=== PATIENT | female | born 1930 | race Caucasian/White ===

== ENCOUNTER 2017-06-05 20:10 | Inpatient (IN) | payer MEDICARE ==
[~2017-06-05] VITALS: Ht 160 cm; Wt 71.6 kg
[~2017-06-05 20:10] MED LIST: ALPR.25T PO; CLONAZEPAM0.5 M1 PO; PAX20 PO
[2017-06-05 20:17] VITALS: BP 141/99; PULSE 79; RESP 20; O2SAT 99
--- NOTE | 2017-06-05 21:29 | ED.REPORT ---
HPI-Abd Pain F 40 and Over Date of Service Jun 05, 2017 ED Provider: Tal Campa MD Pt is a 86 year old female with a history of A-fib, kidney stones, and HTN who presents to the ED complaining of lower abdominal pain onset yesterday. She c/o associated back pain, nausea, eructation, and dysuria onset 1 week ago. She denies fevers and chills. The pt reports hysterectomy, but when inquired about appendectomy, she states she does not know and "I think they probably took it out." Pt denies having similar symptoms previously. Nursing Notes Stated Complaint: POSS BLADDER INFECTION Chief Complaint: Female Abdominal Pain Nursing Notes Reviewed: Yes Allergies: Coded Allergies: Penicillins (Verified Allergy, Severe, 09/14/12) Sulfa (Sulfonamide Antibiotics) (Verified Allergy, Intermediate, 06/05/17) warfarin sodium (Verified Allergy, Unknown, 06/01/14) Scheduled Alprazolam-Expunged Drug, Do Not Renew! (Alprazolam-Expunged Drug, Do Not Renew! ) 0.25 Mg Tablet 0.25 MG PO TIDP PARoxetine-Expunged Drug, Do Not Renew! (Paxil-Expunged Drug, Do Not Renew!) 20 Mg Tablet 20 MG PO DAILY clonazePAM-Expunged Drug, Do Not Renew! (clonazePAM-Expunged Drug, Do Not Renew! ) 0.5 Mg Tablet 0.5 MG PO BID General Time Seen by MD: 21:28 Chief Complaint Abdominal pain Hx Obtained From: Patient Arrived By: Walk-in Sudden in Onset?: No Onset Occurred: Yesterday Symptom Duration: Since onset Location: : Abdomen lower Quality: Painful Radiation: : Back Severity: Current: Moderate Severity: Maximum: Moderate Recent Healthcare: No recent doctor visit, No recent hospitalization Similar Sx Previous: No Past Medical History Past Medical History Notes: PCP - Ivon Mello Past Medical History shingles x2 longstanding history of atrial fibrillation, not currently anticoagulated due to complications Kidney stone Past Surgical History Mitral valve repair Reports: Hysterectomy Smoking History Unknown if Ever Smoker Social History Lives at [place] Alcohol Use: Denies alcohol use Drug Use: Denies drug use Other Social History: Good social support, Lives in care home Ambulatory Status Independent Review of Systems + Eructation Constitutional: Denies: Chills, Fever GI: Reports: Abdominal pain, Nausea Female: Reports: Dysuria Musculoskeletal: Reports: Back pain Complete sys rev & neg: except as marked. Physical Exam Vital Signs Vital Signs (First) Date Time Temp Pulse Resp B/P Pulse Ox O2 Delivery O2 Flow Rate FiO2 06/05/17 20:17 36.8 79 20 141/99 99 Room Air Initial VS: Reviewed Head / Eyes: Atraumatic, Normocephalic Extremities: Vascular intact, Neuro intact Skin: Warm, Dry, No cyanosis Neurologic: Alert, Oriented Psychiatric: Mood/affect normal, Behavior normal General/Constitutional: Awake, Alert Appears painful and distressed. Respiratory / Chest: Atraumatic, Breath sounds NL, Breath sounds = bilat Cardiovascular: Heart rate NL, Regular rhythm, Heart sounds NL, No gallop, No murmurs Abdomen: Soft Tenderness/Guarding/Rebound: Positive: Tender LLQ... (Moderate) Guarding and active bowel sounds. Back: Atraumatic, Full range of motion Left CVAT Interpretation & Diagnostics Lab Results Interpretation Result Diagram: 06/05/17 2229 06/05/17 2229 Test 06/05/17 22:08 06/05/17 22:29 Urine Color Yellow (YELLOW) Urine Appearance Cloudy (CLEAR,HAZY) Urine pH 7.5 (5.0-8.0) Urine Specific [place] 1.010 (1.003-1.035) Urine Protein 30mg/dL (NEG,TRACE) Urine Glucose (UA) Negativemg/dL (NEGATIVE) Urine Ketones Negativemg/dL (NEGATIVE) Urine Occult Blood Large (NEGATIVE) Urine Nitrite Positive (NEGATIVE) Urine Bilirubin Negative (NEGATIVE) Urine Urobilinogen Normalmg/dL (NORMAL) Urine Leukocyte Esterase Large (NEGATIVE) Urine RBC 11-50/hpf (0-2) Urine WBC Packed/hpf (0-5) Urine Epithelial Cells Occasional/hpf (NONE-MOD) Urine Crystals None seen (NONE SEEN) Urine Bacteria Moderate/hpf (NONE-FEW) Urine Hyaline Casts None/lpf (NONE) Urine Granular Casts None seen (NONE SEEN) Urine Waxy Casts None seen (NONE SEEN) Urine Red Blood Cell Casts None seen (NONE SEEN) Urine White Blood Cell Casts None seen (NONE SEEN) Urine Mucus None seen (None Seen) Urine Trichomonas None seen (NONE SEEN) Urine Yeast None (NONE SEEN) Urinalysis Comment None Urine Culture Reflexed Indicated White Blood Count 11.7th/mm3 (3.8-10.1) Red Blood Count 4.45mil/mm3 (3.90-5.20) Hemoglobin 13.1g/dL (12.0-15.6) Hematocrit 38.6% (35.0-46.0) Mean Corpuscular Volume 86.7fL (81-100) Mean Corpuscular Hemoglobin 29.4pg (27.0-35.0) Mean Corpuscular Hemoglobin Concent 33.9% (32.0-37.0) Red Cell Distribution Width 13.1% (12.3-15.4) Platelet Count 218bil/L (150-400) Neutrophils (%) (Auto) 82.1% (40-74) Lymphocytes (%) (Auto) 8.6% (14-46) Monocytes (%) (Auto) 8.6% (4-12) Eosinophils (%) (Auto) 0.3% (0-5) Basophils (%) (Auto) 0.2% (0-3) Sodium Level 134mEq/L (134-144) Potassium Level 4.2mEq/L (3.5-5.2) Chloride Level 99mEq/L (97-108) Carbon Dioxide Level 17mmol/L (18-29) Blood Urea Nitrogen 14mg/dL (8-27) Creatinine 0.84mg/dL (0.57-1.00) Estimat Glomerular Filtration Rate 93mL/min (>59) Glucose Level 124mg/dL (60-99) Lactic Acid Level 1.8mmol/L (0.4-2.0) Calcium Level 9.4mg/dL (8.5-10.1) Magnesium Level 2.0mg/dL (1.6-2.6) Total Bilirubin 0.4mg/dL (0.0-1.2) Aspartate Amino Transf (AST/SGOT) 23U/L (0-50) Alanine Aminotransferase (ALT/SGPT) 11U/L (0-32) Alkaline Phosphatase 89U/L (25-165) Total Protein 7.8g/dL (6.4-8.4) Albumin 4.3g/dL (3.4-5.0) Lipase 49U/L (13-60) Hold Jean Top Tube Received (Received) CT Abd / Pelvis Interpretation CONCLUSION: Thickened urinary bladder, query acute cystitis. Right renal calculus. 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 No obstructing lesion seen. Small right pleural effusion Transmitted to the ED at 00:48 by Cece Toledo. Study type: Abdominal CT no contrast Re-Eval/Medical Decision Med Decision/Clinical Course Elderly female with complicated UTI based on presence of hydronephrosis and renal stones. She appears nontoxic at present she has been cultured and we have started IV meropenem. Will be admitted to the hospitalist service, hospitalist service plans to consult urology in the morning. Source of Hx: Old records Re-Evaluation/Progress : Time of Eval: 00:58 Patient Status: Condition improved Re-Evaluation/Progress Note: Pt rechecked. Informed pt of results and plan for admission. Pt understands and agrees with plan for admission. Discussed pt's plans for life-support; she reports that she does not want to be left on exterminator helper life-support, but would want an attempt at resuscitation. All questions addressed. Consultation : Referral / Consult Name: Santo Quiles MD Consulted With: Hospitalist Call Returned at: 01:09 Cork Wirer: Will see patient, Agrees with eval, Agrees with plan, Accepts admit Counseled Regarding: Diagnosis, Lab results, Need for admission Discharge & Departure Primary Impression: Hydronephrosis Hydronephrosis type: unspecified Qualified Code: N13.30 - Unspecified hydronephrosis Disposition: ADMITTED TO HOSPITAL Discharge Condition All VS Reviewed: Yes Condition: Stable Referrals: Ivon Mello MD (PCP) Lv Attestation Portions of this note were transcribed by Lisa Samuels. IDr. Campa personally performed the history, physical exam and medical decision-making; I reviewed and confirmed the accuracy of the information in the transcribed note. Signed by : Lv Beaver, 06/05/17. copies to: Ivon Mello MD, Donald L MD Jun 05, 2017 21:29 Lisa Walls Jun 05, 2017 21:48
[2017-06-05 21:33] VITALS: BP 151/85; PULSE 99; RESP 17; O2SAT 100
[2017-06-05] MEDS ORDERED: 0.9% Sodium Chloride 1,000 ML IV ONE (21:58)
[2017-06-05 22:20] LABS: APPEARANCE,URINE CLOUDY (CLEAR,HAZY); COLOR,URINE YELLOW (YELLOW); OCCULT BLOOD,URINE LARGE (NEGATIVE); PH,URINE 7.5 (5.0-8.0)
[2017-06-05 22:21] LABS: UROBILINOGEN,URINE NORMAL (NORMAL)
[2017-06-05 22:32] LABS: BASOPHILS % (AUTO) 0.2 % (0-3); EOSINOPHILS % (AUTO) 0.3 % (0-5); MONOCYTES % (AUTO) 8.6 % (4-12); Mean Corpuscular Hemoglobin 29.4 pg (27.0-35.0); Mean Corpuscular Volume 86.7 fL (81-100); NEUTROPHILS % (AUTO) 82.1 % (40-74); Platelet Count 218 bil/L (150-400)
[2017-06-05] MEDS: HYDROmorphone 0.5 mg/0.5 mL iSecure Syringe IVPUSH PRN (22:34)
[2017-06-05] MEDS: Ondansetron 2 mg/mL 2 mL Inj IVPUSH PRN (22:34)
[2017-06-05 22:41] VITALS: BP 154/84; PULSE 110; RESP 20; O2SAT 99
[2017-06-06] VITALS (10 sets, daily range): BP systolic 130–156; BP diastolic 59–90; PULSE 75–102; RESP 18–25; O2SAT 93–100
[2017-06-06] MEDS: Ondansetron 2 mg/mL 2 mL Inj IVPUSH PRN ×3 (00:15→02:30)
[2017-06-06] MEDS: HYDROmorphone 0.5 mg/0.5 mL iSecure Syringe IVPUSH PRN (00:48)
[2017-06-06] MEDS ORDERED: Meropenem Inj 1,000 MG in 0.9% Sodium Chloride 100 ML IV ONE ×2 (01:00→01:01)
[2017-06-06] MEDS ORDERED: Meropenem Inj 1,000 MG in 0.9% Sodium Chloride 50 ML IV ONE (01:00)
[2017-06-06] MEDS ORDERED: Polyethylene Glycol (PEG) 17 Gm Powder PO PRN (01:15)
[2017-06-06] MEDS ORDERED: Ondansetron 2 mg/mL 2 mL Inj IVPUSH PRN (01:15)
[2017-06-06] MEDS ORDERED: Alum-Mag Hydrox-Simeth 30 mL Suspension PO PRN (01:15)
--- NOTE | 2017-06-06 02:10 | PCM.HPMED ---
Subjective Date of Service Jun 06, 2017 Primary Provider: Admitting Physician: Primary Care Physician: Ivon Mello MD Attending Physician: Admit Status: From the Emergency Department, Full Admit, Remote Telemetry Chief Complaint: Flank and abdominal pain History of Present Illness: Madelyn Hill is a 86 year old female with Paroxysmal Atrial fibrillation, Hypertension and Mitral valve surgery who presents to [facility] emergency department complaining of lower abdominal pain onset yesterday. Patient stated she felt hot with possible fever a week ago. She then progressively developed bilateral flank pain that seems to radiate to her lower abdomen. Associated symptom includes nausea without vomiting as well as some dysuria. Denies any hematuria. In the last 24 hours the pain has worsened and with poor appetite. Patient has history of Kidney stone that she passed without any intervention. Case discussed with Dr Campa. IV fluids and antibiotics initiated. Dr Campa will contact Urology for consult Review of Systems: Pertinent positives as noted in HPI. All other systems were reviewed and are negative Allergies Coded Allergies: Penicillins (Verified Allergy, Severe, 09/14/12) Sulfa (Sulfonamide Antibiotics) (Verified Allergy, Intermediate, 06/05/17) warfarin sodium (Verified Allergy, Unknown, 06/01/14) Home Medications From Next [facility], not yet confirmed Madelyn Hill [id number] 1930 06/11/2016 11:00 AM 1/6 amlodipine 5 mg tablet take 1 tablet and half daily in the AM atenolol 25 mg tablet take 1 tablet by oral route every day in the evening Citracal Regular 250 mg calcium-200 unit tablet Take 1 (600 MG) tablet by oral route every other day lovastatin 20 mg tablet take 1 tablet by oral route every day with the evening meal paroxetine 20 mg tablet take 1/2 tablet by oral route every day PMH Hypertension Hyperlipidemia Paroxysmal Atrial fibrillation with chronic anticoagulation GERD Kidney stones Syncope . Surgical History Mitral valve repair Abdominal hysterectomy with unilateral salpingo oophorectomy Cardiac cath Cardioversion Mohs Surgery Family History Father age 94 Mother in her 60s History of Hypertension and Kidney disease Social History Hx Alcohol Use: No Hx Substance Use: No Hx Tobacco Use: No Smoking Status: Never Smoker Living Arrangement: with Family Exam Vital Signs Vital Sign - Last Date Time Temp Pulse Resp B/P Pulse Ox O2 Delivery O2 Flow Rate FiO2 7/30/17 00:45 90 19 142/59 97 Room Air 06/05/17 20:17 36.8 Intake and Output 06/05/17 06/05/17 06/06/17 Cumulative From/Thru 15:00 23:00 07:00 06/05/17 20:17 - 06/06/17 00:45 Intake Total 999 ml 999 ml Balance 999 ml 999 ml Intake IV Total 999 ml 999 ml # Voids 1 1 Exam General: Alert, Oriented X3, Cooperative, mild Distress due to nausea Eyes: PERRLA, Scleral Anicteric Mouth: Mouth Normal, Mucous Membranes dry Neck: Supple, no Thyromegaly, trachea central. Chest & Lungs: Clear to auscultation & percussion, No adventitious breath sounds, no crackles, no wheeze Cardiovascular: Normal S1, Normal S2, No Murmurs/Rubs/Gallops, Regular Rate/ Rhythm, (No JVD, no peripheral edema) Pulses: Radial (present and equal), Dorsalis Pedi (present and equal) Abdomen: Soft, Non-tender, Non-distended, Normoactive bowel tones. Musculoskeletal: Unremarkable. Normal range of motion, no swollen or erythematous joints + CVA tenderness bilateral Extremities: No edema, no cyanosis, no clubbing. Skin: No rashes. Warm and dry, no erythematous areas Neurological: Grossly neurologically intact, Normal Speech, Sensation Intact Lymphatic: Lymph nodes Cervical and Axillary not palpable. Lab and Diagnostics Labs Laboratory Tests Test 06/05/17 22:08 06/05/17 22:29 Urine Color Yellow (YELLOW) Urine Appearance Cloudy (CLEAR,HAZY) Urine pH 7.5 (5.0-8.0) Urine Specific [place] 1.010 (1.003-1.035) Urine Protein 30mg/dL (NEG,TRACE) Urine Glucose (UA) Negativemg/dL (NEGATIVE) Urine Ketones Negativemg/dL (NEGATIVE) Urine Occult Blood Large (NEGATIVE) Urine Nitrite Positive (NEGATIVE) Urine Bilirubin Negative (NEGATIVE) Urine Urobilinogen Normalmg/dL (NORMAL) Urine Leukocyte Esterase Large (NEGATIVE) Urine RBC 11-50/hpf (0-2) Urine WBC Packed/hpf (0-5) Urine Epithelial Cells Occasional/hpf (NONE-MOD) Urine Crystals None seen (NONE SEEN) Urine Bacteria Moderate/hpf (NONE-FEW) Urine Hyaline Casts None/lpf (NONE) Urine Granular Casts None seen (NONE SEEN) Urine Waxy Casts None seen (NONE SEEN) Urine Red Blood Cell Casts None seen (NONE SEEN) Urine White Blood Cell Casts None seen (NONE SEEN) Urine Mucus None seen (None Seen) Urine Trichomonas None seen (NONE SEEN) Urine Yeast None (NONE SEEN) Urinalysis Comment None Urine Culture Reflexed Indicated White Blood Count 11.7th/mm3 (3.8-10.1) Red Blood Count 4.45mil/mm3 (3.90-5.20) Hemoglobin 13.1g/dL (12.0-15.6) Hematocrit 38.6% (35.0-46.0) Mean Corpuscular Volume 86.7fL (81-100) Mean Corpuscular Hemoglobin 29.4pg (27.0-35.0) Mean Corpuscular Hemoglobin Concent 33.9% (32.0-37.0) Red Cell Distribution Width 13.1% (12.3-15.4) Platelet Count 218bil/L (150-400) Neutrophils (%) (Auto) 82.1% (40-74) Lymphocytes (%) (Auto) 8.6% (14-46) Monocytes (%) (Auto) 8.6% (4-12) Eosinophils (%) (Auto) 0.3% (0-5) Basophils (%) (Auto) 0.2% (0-3) Sodium Level 134mEq/L (134-144) Potassium Level 4.2mEq/L (3.5-5.2) Chloride Level 99mEq/L (97-108) Carbon Dioxide Level 17mmol/L (18-29) Blood Urea Nitrogen 14mg/dL (8-27) Creatinine 0.84mg/dL (0.57-1.00) Estimat Glomerular Filtration Rate 93mL/min (>59) Glucose Level 124mg/dL (60-99) Lactic Acid Level 1.8mmol/L (0.4-2.0) Calcium Level 9.4mg/dL (8.5-10.1) Magnesium Level 2.0mg/dL (1.6-2.6) Total Bilirubin 0.4mg/dL (0.0-1.2) Aspartate Amino Transf (AST/SGOT) 23U/L (0-50) Alanine Aminotransferase (ALT/SGPT) 11U/L (0-32) Alkaline Phosphatase 89U/L (25-165) Total Protein 7.8g/dL (6.4-8.4) Albumin 4.3g/dL (3.4-5.0) Lipase 49U/L (13-60) Hold Jean Top Tube Received (Received) Microbiology 06/05/17 Urine Culture, Received Pending Result Diagram: 06/05/[id number]/05/172228 X-Rays, CTs and MRIs CT Abd / Pelvis Interpretation CONCLUSION: Thickened urinary bladder, query acute cystitis. Right renal calculus. 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 No obstructing lesion seen. Small right pleural effusion Transmitted to the ED at 00:48 by Cece Toledo. Study type: Abdominal CT no contrast Assessment & Plan Madelyn Hill is a 86 year old female with Paroxysmal Atrial fibrillation, Hypertension and Mitral valve surgery who presents to [facility] emergency department complaining of lower abdominal pain 1. Urinary tract infection with possible Pyelonephritis. Present on admission Patient has history of recurrent Urinary tract infections, likely have some anatomical issues with genitourinary system or immunocompromised. - continue Ceftriaxone IV for empiric antibiotics - follow Urine culture to help de escalate antibiotics coverage - continue IV fluids resuscitations - Zofran as needed for nausea due to pyelonephritis 2 Bilateral Hydronephrosis, Acute. Present on admission Due to Kidney stones. Fortunate there is not evidence of acute kidney injury - nothing by mouth in case of any surgical intervention - Urology consulted by emergency team 3 Hypertension, Chronic Presumed stable - continuing Amlodipine 2.5 mg daily and Atenolol 25 mg daily 4 Hyperlipidemia - continue Lovastatin 20 mg daily - Acetaminophen as needed for mild pain/fever/headache - Bowel regimen as needed - Antiemetic as needed Patient admitted under inpatient status with expected length of stay > 2 midnights for severity of present symptoms, complexities of treatment plan and risk for adverse event . Resuscitation Status: CPR: Attempt Resuscitation Santo Quiles MD Jun 06, 2017 01:19
[2017-06-06] MEDS: cefTRIAXone Inj 1,000 MG in Dextrose 5% Minibag Plus 50 ML IV SCH (02:30)
[2017-06-06] MEDS: 0.9% Sodium Chloride 1,000 ML IV SCH ×3 (03:12→21:14)
[2017-06-06] MEDS: MetoCLOpramide 5 mg/mL 2 mL Inj IVPUSH PRN ×2 (03:15→16:22)
[2017-06-06] MEDS ORDERED: HYDROmorphone 1 mg/mL Inj IVPUSH PRN (03:25)
[2017-06-06] MEDS ORDERED: ATEN25TA PO (03:37)
[2017-06-06] MEDS ORDERED: AMLO5TAB2 PO (03:37)
[2017-06-06] MEDS ORDERED: ASPI-973 PO (03:37)
[2017-06-06] MEDS ORDERED: LOVA20TA PO (03:37)
--- NOTE | 2017-06-06 04:34 | NUR ---
ADMIT Pt arrived on unit from ED with all personal belongings. Able to transfer self to bed. Complained of nausea, Reglan ordered by MD. Ineffective. Pt stated, "I get nauseous when I get anxious." MD notified. New order: Ativan 1mg IV push. VSS. Alert and oriented. Oriented to hospital/fall policy and call light. Allergy sticker placed on arm band. Home medication list completed. No skin issues. Bed locked, low position. Nonslip socks and SBA for safety. Call light within reach, using appropriately. Frequent rounding in place. Pleasant and cooperative with care.
[2017-06-06] MEDS ORDERED: FLUT9.9S NS (04:55)
--- NOTE | 2017-06-06 07:09 | DRSVH ---
PROCEDURE: CT ABDOMEN AND PELVIS WITH CONTRAST ([id number]) INDICATIONS: 86 year-old female with left lower quadrant abdominal pain. TECHNIQUE: After the administration of intravenous contrast, 5 mm thick sections acquired from the diaphragm to the symphysis. 5 mm coronal and sagittal reformats were acquired. For radiation dose reduction, the following was used: automated exposure control, adjustment of mA and/or kV according to patient siz e. COMPARISON: [facility], CT, CT KUB, 12/29/2016, 13:25. [facility], CT, CT AB D PELVIS W CON, 09/04/2015, 23:37. [facility], CT, ABD/PELVIS W/CON (PNL), 06/01/2014, 23 :29. [facility], CT, ABD/PELVIS W/CON (PNL), 03/30/2007, 10:55. FINDINGS: Preliminary interpretation rendered by [facility]. Image quality: Excellent. ABDOMEN: Lung bases: Lung bases are clear. There is persistent trace right basal pleural effusion. Heart siz e is normal. There is small retrocardiac hiatal hernia. Solid organs: Liver and spleen are normal in size and enhancement. Gallbladder wall thickness is no rmal. Biliary system is non dilated. Pancreas enhances normally. No adrenal nodules. Kidneys demo nstrate normal size and enhancement, with persistent moderate left and mild right hydronephrosis. Non obstructing 6 mm right renal stone is unchanged. Both ureters remain normal in caliber. Peritoneum and bowel: Bowel loops demonstrate normal wall thickness and caliber. No colonic diverti cula. The appendix is unable to be visualized. No free fluid or air. Nodes and vessels: No retroperitoneal or mesenteric adenopathy by size criteria. Aorta and inferior vena cava are normal in size, with scattered aortoiliac atherosclerosis. Miscellaneous: There is small fat-containing periumbilical ventral hernia as before. PELVIS: Genitourinary: The bladder is incompletely distended at the time of scan. The uterus is surgically a bsent. Left ovary is normal in size. The right ovary is not well seen, and may be small or surgically absent. Miscellaneous: No inguinal hernias or adenopathy. Bones: No suspicious bony lesions. Mild non-acute L1 anterior wedge compression fracture is unchange d since 2006. IMPRESSION: 1. Persistent moderate left and mild right hydronephrosis with normal ureteral calibers, consistent w ith background ureteropelvic junction strictures. 2. Solitary nonobstructing 6 mm right renal stone as before. 3. No acute findings to explain left lower quadrant abdominal pain. 4. Nonacute L1 anterior wedge compression fracture is unchanged, with mild height loss. 5. Small fat-containing periumbilical ventral hernia. 6. Persistent trace basal right pleural effusion is of uncertain etiology. 7. Small retrocardiac hiatal hernia. Dictated by: Lg Malagon M.D. on 06/06/2017 at 6:57 Approved by: Lg Malagon M.D. on 06/06/2017 at 7:07
[2017-06-06] MEDS: Heparin 5,000 Unit/mL Inj SUBQ SCH ×2 (08:17→16:18)
--- NOTE | 2017-06-06 18:12 | NUR ---
Nausea Patient stated she felt a lot better today. Patient denied nausea this morning and only had complaints of slight nausea this afternoon. 5 mg IV Reglan was administered and patient felt better.
[2017-06-07] VITALS (9 sets, daily range): BP systolic 129–146; BP diastolic 84–95; PULSE 67–83; RESP 18–20; O2SAT 95–98
[2017-06-07] MEDS: Heparin 5,000 Unit/mL Inj SUBQ SCH ×3 (00:56→16:10)
[2017-06-07] MEDS: cefTRIAXone Inj 1,000 MG in Dextrose 5% Minibag Plus 50 ML IV SCH (02:09)
--- NOTE | 2017-06-07 04:02 | NUR ---
activity Pt alert and oriented x3, pleasant and cooperative. Pt up to bathroom, SBA due to IV pump, no complaints of pain or discomfort. Pt up to bathroom x2 to urinated. Will continue to monitor.
[2017-06-07 07:06] LABS: BASOPHILS % (AUTO) 0.2 % (0-3); EOSINOPHILS % (AUTO) 1.7 % (0-5); MONOCYTES % (AUTO) 10.6 % (4-12); Mean Corpuscular Hemoglobin 28.4 pg (27.0-35.0); Mean Corpuscular Volume 89.3 fL (81-100); NEUTROPHILS % (AUTO) 67.1 % (40-74); Platelet Count 196 bil/L (150-400)
[2017-06-07] MEDS: 0.9% Sodium Chloride 1,000 ML IV SCH ×3 (07:14→21:34)
[2017-06-07 08:22] LABS: Magnesium 1.9 mg/dL (1.6-2.6); Phosphorus 2.8 mg/dL (2.5-4.9)
--- NOTE | 2017-06-07 09:06 | PCM.PNMED ---
Subjective Date of Service Jun 07, 2017 Subjective pt feels well, denied n/v, abdominal pain urinary burning or voiding difficulty denied chills remained afebrile Exam Vital Signs Vital Sign - Last Date Time Temp Pulse Resp B/P Pulse Ox O2 Delivery O2 Flow Rate FiO2 06/07/17 05:00 36.4 77 18 138/90 96 Room Air Intake and Output 06/06/17 06/06/17 06/07/17 Cumulative From/Thru 15:00 23:00 07:00 06/05/17 20:17 - 06/07/17 05:56 Intake Total 1519 ml 1305 ml 3823 ml Output Total 1200 ml 650 ml 1850 ml Balance 319 ml 655 ml 1973 ml Intake Oral 400 ml 200 ml 600 ml IV Total 1119 ml 1105 ml 3223 ml Output Urine Total 1200 ml 650 ml 1850 ml # Voids 2 # Bowel Movements 0 0 Exam NAD, comfortably laying down on the bed no JVD, MMM, no LAD RRR, nl s1, s2 no mrg CTAB, no w,c S,ND,NT,normoactive BS+, no CVAT, no suprapubic td warm, no edema, pulses 2/2 IVs and Medications Medications Reviewed: Medications were reviewed in detail Lab and Diagnostics Result Diagram: 06/07/17 0650 06/07/17 0650 X-Rays, CTs and MRIs CT Abd / Pelvis Interpretation CONCLUSION: Thickened urinary bladder, query acute cystitis. Right renal calculus. 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 No obstructing lesion seen. Small right pleural effusion Transmitted to the ED at 00:48 by Cece Toledo. Study type: Abdominal CT no contrast Assessment & Plan Madelyn Hill is a 86 year old female with Paroxysmal Atrial fibrillation, Hypertension and Mitral valve surgery who presents to [facility] emergency department complaining of lower abdominal pain 1. Urinary tract infection with possible Pyelonephritis. Present on admission, UA+ for pyuria, bacteriuria, UCX GNR+, pt was empirically starte don Ceftriaxone IV. It's likely that pt had nephrolithiasis again but passed already. CT on admission showed persistent hydronephrosis with normal ureteral caliber, known 6mm non-obstructing stone. - clinically improved, currently asymptomatic, - follow Urine culture to help de escalate antibiotics coverage - continue IV fluids resuscitations - Zofran as needed for nausea due to pyelonephritis 2 Bilateral Hydronephrosis, likely chronic persistent as per CT report compared to one in Dec, Due to previous Kidney stones. - discussed with on 06/06, awaits evaluation 3 Hypertension, Chronic Presumed stable - continuing Amlodipine 2.5 mg daily and Atenolol 25 mg daily 4 Hyperlipidemia - continue Lovastatin 20 mg daily - Acetaminophen as needed for mild pain/fever/headache - Bowel regimen as needed - Antiemetic as needed dispo: likely 1-2days, home no need VTE Mechanical Devices: Venous Foot Pump Resuscitation Status: CPR: Attempt Resuscitation Time spent 35min Khris Zamora MD Jun 07, 2017 09:06
--- NOTE | 2017-06-07 14:51 | NUR ---
Social Work-initial assessment: Data:See initial assessment. Pt is a 86 y/o female who was admitted on 06/06/17 for pyelonephritis per H&P. Pt's insurance is [employer] and [employer]. Pt's PCP is Ivon Mello MD. EMR reviewed. Pt's readmission score is 0. SW met with pt to discuss discharge planning, SW role explained. Pt is alert and oriented x3. Pt resides at [facility] where she remains independent with ADLs. Pt drives and does not use any DME. Pt has no HH or SNF history. Pt has no shelter care insurance or VA benefits. SW discussed DPOA/ advanced directive, pt confirms she has completed this, SW encouraged a copy to be brought in. Pt's family to provide transport home at discharge. SW provided pt with discharge planning checklist and encouraged her to call with any questions. SW provided phone number on white board in room. No anticipated discharge needs. SW will continue to follow if needs arise. Assessment:Pt who is independent at baseline. Plan:Pt to discharge back to [email or web address] when medically stable via POV. No anticipated discharge needs. SW will continue to follow if needs arise. JULIAN Landis Addendum: 06/07/17 at 1505 by JOB KIDD SS Amended: Links added.
--- NOTE | 2017-06-07 15:54 | CONS ---
[address] [address] CONSULTATION REPORT PATIENT: RAHUL PIERSON : 1930 MR#: [id number] ADMIT: 06/06/2017 JOB ID: [id number] DATE OF SERVICE: REQUESTING PHYSICIAN: Dr. Zamora REASON FOR REQUEST: Urinary tract infection. Urinary stone, hydronephrosis. HISTORY: The patient is a very pleasant, 86-year-old woman who presented to [facility] emergency department one day ago with a one-week complaint of worsening lower abdominal and suprapubic pain. Intermittently, she felt prostrate but never took her temperature. She developed severe nausea as well. On presentation, urinalysis was noted to be consistent with infection, findings of large blood, nitrite positive, large leukocyte esterase, packed with white blood cells, only occasional epithelial cell, moderate bacteria. White blood cell count was 11.7, with 82% neutrophils. Lactic acid is 1.8. She has a history of recurrent infection and has not sought urologic care. She has a history of nephrolithiasis and passed a stone in the past. She is status post hysterectomy and right oophorectomy in the . She denies ongoing issues with significant incontinence. CT KUB on June 05, 2017, is compared to previous studies, December 29, 2016, and September 04, 2015, and identifies again a solitary, nonobstructing, 6 mm right renal calculus, unchanged in size or position. Also noted is persistent moderate left and mild right hydronephrosis with normal caliber ureters, raising the question of low-grade UPJ obstruction versus extrarenal pelves. No obvious evidence of pyelonephritis, stone, or clear evidence of obstruction. She was provided intravenous fluid resuscitation and was started on ceftriaxone after cultures were obtained and she has responded very well clinically. Admitting white blood cell count 11.7 with a left shift as noted above. The morning of June 07, 2017, white blood cell count is now down to 6.3 with 67% neutrophils. Urine culture preliminary is growing greater than 100,000 gram-negative rods. Blood cultures thus far negative. ALLERGIES: 1. PENICILLIN. 2. SULFA. 3. WARFARIN. SOCIAL HISTORY: Denies alcohol, tobacco or substance use. Has never smoked. PAST SURGICAL HISTORY: Open mitral valve repair, abdominal hysterectomy, unilateral salpingo-oophorectomy. History of cardioversion. History of Mohs surgery. PAST MEDICAL HISTORY: Nephrolithiasis, GERD, paroxysmal atrial fibrillation with chronic anticoagulation, hyperlipidemia, and hypertension. PHYSICAL EXAMINATION: She is afebrile. Vital signs are stable. She is resting comfortably in the loveseat couch within the room. Head and neck exam unremarkable. Chest: Remarkable for some visible JVD just above the clavicle. Sclerae are clear. Chest clear and unlabored expansion bilaterally. Heart rate is regular. Extremities are warm. Pulses are palpable in all four. Abdomen is protuberant, soft. Bowel sounds are active. Well-healed lower abdominal incision. Pelvic not performed. Extremities: No pallor, edema, cyanosis or clubbing. IMPRESSION: 1. Recurrent and current urinary tract infection in an 86-year-old, postmenopausal woman. 2. Stable, 6 mm nonobstructing right nephrolithiasis and history of nephrolithiasis. 3. Bilateral renal pelvic hydronephrosis, left greater than right. Stable in comparison to previous imaging. RECOMMENDED PLAN: 1. Osphena 60 mg p.o. daily. 2. Treat, appropriate antibiotic orally, once culture and sensitivity are available, for 10 days, followed by antibiotic prophylaxis at h.s. I will coordinate and order this once she is seen outpatient. 3. Will discuss with her the role of MAG3 Lasix renogram. Rule out obstruction, although my concern level is modestly low with regard to significant anatomic obstruction. 4. Would recommend probiotics daily. 5. Please request followup appointment in my office at [phone], 1-2 weeks post discharge.
--- NOTE | 2017-06-07 18:50 | NUR ---
Daily update Patient has had an uneventful day. Patient had no complaints of pain or nausea today. Patient is looking forward to possible DC tomorrow.
[2017-06-08 00:24] VITALS: BP 145/83; PULSE 74; RESP 18; O2SAT 95
[2017-06-08] MEDS: Heparin 5,000 Unit/mL Inj SUBQ SCH ×2 (00:30→09:24)
--- NOTE | 2017-06-08 01:11 | NUR ---
DAUGHTER/NAUSEA Per patient request this RN called the patient's daughter Marcy and updated her on patient's status and plan of care. Pt. daughter to come from out of town tomorrow to visit and if pt. discharged will transport home. Pt. reports increase of nausea, bloating, gas, and belching after having her salmon dinner. Pt. given Maalox per orders and encouraged to ambulate. Pt. denied pain. Pt. offered anti-nausea medications but declined. Pt. given bedtime medications and Ativan for anxiety. Pt. able to rest and appeared comfortable after this intervention. Pt. reports that the burning she had been experiencing when urinating has resolved. Pt. urine appears clear and yellow.
[2017-06-08] MEDS: cefTRIAXone Inj 1,000 MG in Dextrose 5% Minibag Plus 50 ML IV SCH (01:43)
[2017-06-08 04:16] VITALS: BP 152/99; PULSE 67; RESP 20; O2SAT 99
[2017-06-08 05:28] LABS: BASOPHILS % (AUTO) 0.4 % (0-3); EOSINOPHILS % (AUTO) 2.5 % (0-5); MONOCYTES % (AUTO) 11.9 % (4-12); Mean Corpuscular Volume 88.3 fL (81-100); NEUTROPHILS % (AUTO) 61.1 % (40-74); Platelet Count 206 bil/L (150-400)
--- NOTE | 2017-06-08 06:00 | NUR ---
ANXIETY Pt. woke up at approximately 0400. She started to think about her daughter driving up to visit and started to worry. Pt. then started to feel nauseated. Pt. medicated with Zofran and Ativan per orders. Pt. started to feel better. States that she knows that she sometimes gets anxiety and does have medication for it at home. She states that she does well at home with her friends and playing cards. Pt. able to fall back asleep after her am lab draw.
[2017-06-08] MEDS ORDERED: CIPR500S3 PO (07:23)
[2017-06-08] MEDS ORDERED: ONDA4TAB9 PO (07:23)
[2017-06-08 09:19] VITALS: BP 125/78; PULSE 75; RESP 18; O2SAT 99
--- NOTE | 2017-06-08 10:13 | PCM.DIMED ---
Discharge Instructions Date of Service Jun 08, 2017 Dates of Hospitalization Jun 06, 2017 at 01:41 Discharge Diagnosis Discharge Diagnosis acute dx probable Pyelonephritis, secondary to Citrobacter Freundii chronic bilateral Hydronephrosis, non-obstructing renal stone chronic dx Hypertension Hyperlipidemia Medication Instructions Additional med instructions Please continue Ciprofloxacin 500mg twice a day for 7more days Please take zofran 1tab every 4hours as needed for nausea, vomiting Diet Discharge Diet: No restrictions Activity Discharge Activity: No restrictions Call your provider Call your provider for: Fever or Chills, Excessive diarrhea Patient Instructions Patient Instructions You were hospitalized with symptoms concerning for urinary tract infection and kidney stone. You were treated appropriately with antibiotics, found to have stable stone and stable enlarged kidneys and kidney stone. It's possible that your had kidney stone and passed. Since you still have this structural abnormalities, You were seen by Urologist. Please follow up with in 1-2wks in his office, Please follow up with your primary doctor in 2weeks Follow-up Provider: Ivon Mello MD Follow-up with PCP in: 2 weeks Provider: Jay Robbins MD Follow-up in: 1 week Khris Zamora MD Jun 08, 2017 10:13
--- NOTE | 2017-06-08 10:33 | NUR ---
Social Work-discharge: Data:EMR reviewed. Pt is on day 2 of hospitalization for pyelonephritis per H&P. Pt is medically stable today. Pt resides at [facility] Pt's family to provide transport home. Per RN notes, pt has been up independent in her room. No discharge needs identified. All updated and agreeable to plan. Assessment:Pt who is independent at baseline. Plan:Pt to discharge back to [facility] today via POV. No discharge needs identified. All updated and agreeable to plan. JULIAN Landis
[2017-06-08 10:56] VITALS: PULSE 74
--- NOTE | 2017-06-08 11:53 | PCM.DC.MED ---
Discharge Summary Date of Service Jun 08, 2017 Dates of Hospitalization Date of Hospital Admission Jun 06, 2017 at 01:41 Date of Discharge: Jun 08, 2017 Providers: Admitting Physician: Santo Quiles MD Primary Care Physician: Ivon Mello MD Attending Physician: Khris Denise MD Diagnosis at Time of Discharge Diagnosis at Time of Discharge acute dx probable Pyelonephritis, secondary to Citrobacter Freundii chronic bilateral Hydronephrosis, non-obstructing renal stone chronic dx Hypertension Hyperlipidemia Consultations , Procedures XRay, CTs & MRIs CT Abd / Pelvis Interpretation CONCLUSION: Thickened urinary bladder, query acute cystitis. Right renal calculus. 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 No obstructing lesion seen. Small right pleural effusion Transmitted to the ED at 00:48 by Cece Toledo. Study type: Abdominal CT no contrast Brief History HPI obtained by on 06/06 Madelyn Hill is a 86 year old female with Paroxysmal Atrial fibrillation, Hypertension and Mitral valve surgery who presents to [facility] emergency department complaining of lower abdominal pain onset yesterday. Patient stated she felt hot with possible fever a week ago. She then progressively developed bilateral flank pain that seems to radiate to her lower abdomen. Associated symptom includes nausea without vomiting as well as some dysuria. Denies any hematuria. In the last 24 hours the pain has worsened and with poor appetite. Patient has history of Kidney stone that she passed without any intervention. Case discussed with Dr Campa. IV fluids and antibiotics initiated. Dr Campa will contact Urology for consult Hospital Course Madelyn Hill is a 86 year old female with Paroxysmal Atrial fibrillation, Hypertension and Mitral valve surgery who presents to [facility] emergency department complaining of lower abdominal pain acute dx 1. Urinary tract infection with possible Pyelonephritis. UA+ for pyuria, bacteriuria, UCX grew eventually Citrobacter, pt was empirically started on Ceftriaxone IV. It's likely that pt had nephrolithiasis again but passed already based on quickly resolved sx. CT on admission showed persistent hydronephrosis with normal ureteral caliber, known 6mm non- obstructing stone, UPJ stricture. Given these findings, Urology was consulted, recommended outpatient follow up. Plan is to finish 10days course with Ciprofloxacin 500mg bid based on culture susceptibility. pt was intermittently nauseated, but controlled with zofran well, deemed safe for d/c Exam Vital Signs (Last) Date Time Temp Pulse Resp B/P Pulse Ox O2 Delivery O2 Flow Rate FiO2 06/08/17 10:56 74 06/08/17 09:19 36.3 18 125/78 99 Room Air Exam pt was examined on the day of d/c Test 06/05/17 22:08 06/05/17 22:29 06/06/17 07:00 06/07/17 06:50 Urine Color Yellow (YELLOW) Urine Appearance Cloudy (CLEAR,HAZY) Urine pH 7.5 (5.0-8.0) Urine Specific [place] 1.010 (1.003-1.035) Urine Protein 30mg/dL (NEG,TRACE) Urine Glucose (UA) Negativemg/dL (NEGATIVE) Urine Ketones Negativemg/dL (NEGATIVE) Urine Occult Blood Large (NEGATIVE) Urine Nitrite Positive (NEGATIVE) Urine Bilirubin Negative (NEGATIVE) Urine Urobilinogen Normalmg/dL (NORMAL) Urine Leukocyte Esterase Large (NEGATIVE) Urine RBC 11-50/hpf (0-2) Urine WBC Packed/hpf (0-5) Urine Epithelial Cells Occasional/hpf (NONE-MOD) Urine Crystals None seen (NONE SEEN) Urine Bacteria Moderate/hpf (NONE-FEW) Urine Hyaline Casts None/lpf (NONE) Urine Granular Casts None seen (NONE SEEN) Urine Waxy Casts None seen (NONE SEEN) Urine Red Blood Cell Casts None seen (NONE SEEN) Urine White Blood Cell Casts None seen (NONE SEEN) Urine Mucus None seen (None Seen) Urine Trichomonas None seen (NONE SEEN) Urine Yeast None (NONE SEEN) Urinalysis Comment None Urine Culture Reflexed Indicated Lactic Acid Level 1.8mmol/L (0.4-2.0) Lipase 49U/L (13-60) Hold Jean Top Tube Received (Received) Procalcitonin 0.02ng/mL (0.00-0.08) Phosphorus Level 2.8mg/dL (2.5-4.9) Magnesium Level 1.9mg/dL (1.6-2.6) Test 06/08/17 05:00 White Blood Count 5.6th/mm3 (3.8-10.1) Corrected White Blood Count th/mm3 (3.8-10.1) Red Blood Count 3.76mil/mm3 (3.90-5.20) Hemoglobin 10.9g/dL (12.0-15.6) Hematocrit 33.2% (35.0-46.0) Mean Corpuscular Volume 88.3fL (81-100) Mean Corpuscular Hemoglobin 29.0pg (27.0-35.0) Mean Corpuscular Hemoglobin Concent 32.8% (32.0-37.0) Red Cell Distribution Width 12.9% (12.3-15.4) Platelet Count 206bil/L (150-400) Neutrophils (%) (Auto) 61.1% (40-74) Lymphocytes (%) (Auto) 24.1% (14-46) Monocytes (%) (Auto) 11.9% (4-12) Eosinophils (%) (Auto) 2.5% (0-5) Basophils (%) (Auto) 0.4% (0-3) Sodium Level 138mEq/L (134-144) Potassium Level 3.7mEq/L (3.5-5.2) Chloride Level 102mEq/L (97-108) Carbon Dioxide Level 21mmol/L (18-29) Blood Urea Nitrogen 9mg/dL (8-27) Creatinine 0.71mg/dL (0.57-1.00) Estimat Glomerular Filtration Rate 112mL/min (>59) Glucose Level 95mg/dL (60-99) Calcium Level 8.5mg/dL (8.5-10.1) Total Bilirubin 0.3mg/dL (0.0-1.2) Aspartate Amino Transf (AST/SGOT) 17U/L (0-50) Alanine Aminotransferase (ALT/SGPT) 8U/L (0-32) Alkaline Phosphatase 77U/L (25-165) Total Protein 6.4g/dL (6.4-8.4) Albumin 3.8g/dL (3.4-5.0) Discharge Medications Discharge Medications Amlodipine (Amlodipine) 5 Mg Tablet 5 MG PO MORNING (Reported) Aspirin (Aspirin) 81 Mg Tablet 81 MG PO MORNING (Reported) Atenolol (Atenolol) 25 Mg Tablet 25 MG PO HS (Reported) Ciprofloxacin (Ciprofloxacin) 500 Mg/5 Ml Maye..rec 500 MG PO BID Prescribed by: KHRIS DENISE MD Lovastatin (Lovastatin) 20 Mg Tablet 20 MG PO HS (Reported) As needed Ondansetron ODT (Zofran ODT) 4 Mg Tablet 4 MG PO Q4H PRN PRN For Nausea Prescribed by: KHRIS DENISE MD Miscellaneous Medications Fluticasone Propionate (Flonase Allergy Relief) 50 Mcg/Actuation [place].susp 9.9 ML NS (Reported) Additional med instructions Please continue Ciprofloxacin 500mg twice a day for 7more days Please take zofran 1tab every 4hours as needed for nausea, vomiting Followup Plan Disposition: home Discharge Diet: No restrictions Discharge Activity: No restrictions Patient Instructions You were hospitalized with symptoms concerning for urinary tract infection and kidney stone. You were treated appropriately with antibiotics, found to have stable stone and stable enlarged kidneys and kidney stone. It's possible that your had kidney stone and passed. Since you still have this structural abnormalities, You were seen by Urologist. Please follow up with in 1-2wks in his office, Please follow up with your primary doctor in 2weeks Follow-up Provider: Ivon Mello MD Follow-up with PCP in: 2 weeks Provider: Jay Robbins MD Follow-up in: 1 week Time spent 65min Khris Denise MD Jun 08, 2017 11:53
--- NOTE | 2017-06-08 12:27 | NUR ---
Discharge Pt discharged home with daughter via private vehicle. Pt A/O x 4, verbalized understanding of discharge, follow up and new Rx instructions, personal belongings accounted for and left with pt. Pt requested to walk out, and did so with daughter, steady gait observed.
== END 2017-06-08 12:53 | disposition home or self-care (01) | DRG 690 ==
LOC: SED 20:10 → MPC 06-06 01:41
PROVIDERS: ADMIT Hospitalist; ATTEND Internal Medicine
DX: N12 Tubulo-interstitial nephritis, not specified as acute or chronic (principal); N13.39 Other hydronephrosis; I10 Essential (primary) hypertension; I48.0 Paroxysmal atrial fibrillation; E78.5 Hyperlipidemia, unspecified; K21.9 Gastro-esophageal reflux disease without esophagitis; B96.89 Other specified bacterial agents as the cause of diseases classified elsewhere; Z79.01 Long term (current) use of anticoagulants; Z88.0 Allergy status to penicillin; Z79.82 Long term (current) use of aspirin